=== PATIENT | male | born 1970 | race Caucasian/White ===

== ENCOUNTER 2020-12-22 11:10 | Outpatient (REF) | payer OTHER, SELFPAY ==
--- NOTE | ~2020-12-22 | MR_ITS ---
EXAMINATION: MR LUMBAR SPINE WITHOUT CONTRAST CLINICAL INFORMATION: Worsening posterior right thigh pain x2 months. Increasing. COMPARISON: Lumbar spine radiographs 04/19/2019. TECHNIQUE: MRI of the lumbar spine was obtained using routine sequences without contrast. FINDINGS: There is nonspecific straightening of the lumbar lordosis. Alignment is otherwise normal. Vertebral heights are preserved. There are mixed degenerative endplate changes at L2-L3 and L3-L4. There is slight loss of intervertebral disc height at multiple levels related to disc degeneration. The tip of the conus medullaris is located at L1. No mass effect on the conus. Visualized distal cord signal intensity is normal. At L1-L2 there is a slightly bulging disc. No canal stenosis. No mass effect the traversing or foraminal nerve roots. At L2-L3 there is a diffusely bulging disc. Mild canal stenosis. No mass effect on the traversing or foraminal nerve roots. At L3-L4 there is a diffusely bulging disc. Mild canal stenosis. No mass effect on the traversing or foraminal nerve roots. At L4-L5 there is a slightly bulging disc. No canal stenosis. No mass effect on the traversing or foraminal nerve roots. At L5-S1 the annular contour is normal. No canal or neuroforaminal compromise. Limited visualization of the retroperitoneal anatomy reveals no abnormal finding. Psoas and paraspinal muscle groups are symmetric. MR/MR lumbar spine wo con IMPRESSION: There is multilevel degenerative spondylosis of lumbar spine. Bulging discs cause mild canal stenosis at L2-L3 and L3-L4. Otherwise unremarkable examination. No canal stenosis. No mass effect on the traversing or foraminal nerve roots.
== END 2020-12-22 11:11 | disposition home or self-care (01) ==
LOC: HO.MRI 11:10
PROVIDERS: PCP Internal Medicine; Visit Provider Internal Medicine
DX: M54.5 Low back pain (principal)
CPT/HCPCS: 72148

== ENCOUNTER 2021-08-11 12:38 | Emergency (ER) | payer OTHER, SELFPAY ==
[2021-08-11 13:27] VITALS: BP 150/90; PULSE 67; RESP 19; TEMP 36.6; O2SAT 96; BMI 36.6
--- NOTE | 2021-08-11 14:39 | ED_ITS ---
HPI - Back Pain/Injury General Chief Complaint: Back Pain/Injury Stated Complaint: back & leg pain Time Seen by Provider: 08/11/21 14:09 Source: patient Mode of arrival: ambulatory Limitations: no limitations History of Present Illness MD elicited complaint: back pain Pertinent past history: prior back pain (Had a lumbar MRI without contrast on 12/23/2020 which revealed multilevel degenerative spondylosis of lumbar spine bulging disc causing mild canal stenosis at L2-L3 an L3-L4 otherwise no other acute processes) Onset (ago): week(s) (One week worse today) Timing: constant and progressively worsening Severity: severe Pain scale (0-10): 10 Similar Symptoms Previously: Yes Quality: sharp, aching, tingling and throbbing Location: lumbar spine Radiation: left upper leg, right upper leg, left leg below the knee and right leg below the knee Exacerbating factors: movement, sitting upright and walking Relieving factors: immobilization Context: unknown Associated symptoms: denies other symptoms Treatments prior to arrival: other ([id number] medication and prescribed gabapentin no symptomatic relief) Work related injury: No Related Data Previous Rx's Medication Instructions Recorded acetaminophen 500 mg tablet 1,000 mg PO QID PRN #14 tab 08/11/21 (Tylenol Extra Strength) diazepam 10 mg tablet (Valium) 10 mg PO Q8H PRN #14 tab 08/11/21 ibuprofen 800 mg tablet 800 mg PO Q8H PRN #14 tab 08/11/21 lidocaine HCl 4 % topical cream 1 appl TOPICAL BID PRN #120 g 08/11/21 (Aspercreme (lidocaine HCl)) oxycodone 5 mg tablet 5 mg PO Q6H PRN #14 tab 08/11/21 prednisone 20 mg tablet 40 mg PO DAILY 5 Days #10 tab 08/11/21 Allergies Allergy/AdvReac Type Severity Reaction Status Date / Time No Known Allergies Allergy Unverified 07/24/20 17:16 [No Known Allergies*] Review of Systems Review of Systems: Constitutional : No trauma, No Weight loss, No Fever, No Ch ills, ENT/Mouth : No Hearing loss, No Ear Pain, No Nasal Congestion, No Sinus Pain, No Hoarseness, No sore throat, No Rhinorrhea, No Swallowing Difficulty Cardiovascular : No Chest Pain, No SOB Respiratory : No Cough, No Dyspnea Gastrointestinal : No Nausea, No Vomiting, No Diarrhea, No abdominal Pain, No Hematochezia, No Melena Genitourinary : No Dysuria, No Urinary Frequency, No Hematuria, No Urinary or Bowel Incontinence/retention Musculoskeletal : + Back pain, + neck pain, No joint stiffness, No joint swelling Skin : No Skin Lesions, No rash or signs of infection Neuro : No Weakness, + radiation, + tingling, No Numbness, No Paresthesias, No headache, no loss of bowel or bladder incontinence, no saddle anesthesia, Focal weakness, No radiation Denies history of IV drug usage. Yes all other systems are reviewed and are negative [facility] Past Medical History Attestation statement: The following information was validated with the patient. Medical History GERD (gastroesophageal reflux disease) HTN (hypertension) Social History Social History Advance Directives: No Physical Exam Vital Signs: Vital Signs: Last Vital Signs Temp 98 F 08/11/21 13:27 Pulse 67 08/11/21 13:27 Resp 19 08/11/21 13:27 BP 150/90 H 08/11/21 13:27 Pulse Ox 96 08/11/21 13:27 Body Mass Index 36.6 vital signs have been reviewed as normal and appeared to be correct. Blood pressure normal. Heart rate normal. Respiration rate normal. Temperature normal. Oxygen saturation normal. Appearance: Alert. Oriented X3. No acute distress. Head: Normal external exam. Normocephalic. Atraumatic. Eyes: PERRLA. EOMI. Conjunctiva and sclera normal. Eyelids normal. ENT: Pharynx normal. Uvula midline. Moist mucous membranes. No trismus noted. No drooling noted. No muffled voice noted. Neck: Normal inspection. Neck supple. FROM. No adenopathy. Thyroid Normal. No meningeal signs. No neck mass noted. Patient mild tenderness supine lateral cervical paraspinous. No midcervical tenderness step-offs or deformities. Patient neuro intact bilat on this in all 4 extremities. Reflex intact and distally on all extremities. No rashes/lesion/induration/fluctuance or signs of infection noted. CVS: Normal heart rate and rhythm. Heart sound normal. No murmurs noted. Pulses normal throughout. Respiratory: No respiratory distress. Painless inspiration. Breath sounds normal. No wheezes/rales/rhonchi noted. Chest nontender. No accessory muscle usage noted or decreased air movement noted. Abdomen: Soft and nontender. Bowel sounds normal in all 4 quadrants. No distention noted. No organomegaly noted. No visible injury noted. Back: No CVA tenderness. Full range of motion noted. No obvious deformities, or edema. Mild para-spinal muscular tenderness from lumbar region to coccyx. Full ROM in back and lower extremities. 5/5 strength hip extension/flexion, abduction, adduction. Mild Lumbar pain with hip flexion against resistance. Straight leg raise test negative on right; Straight leg raise test negative on left; Reflexes normal ankle and knee bilaterally; EHL motor strength normal bilaterally. No rashes/lesion/induration/fluctuance or signs infection noted. Skin: Skin warm and dry. Normal skin color. Normal skin turgor. No rashes/lesions/lacerations noted. Extremities: Extremities exhibit normal range of motion. Extremities nontender. Neuro: Oriented X 3. No motor deficit. No sensory deficit. Reflexes normal. Patient has a normal steady gait. Course Course Course Narrative: Pt c likely muscular pain, but could be herniated disc. Neuro exam shows no deficits. Not c/w AAA/epidural abscess/dissection.No high risk Hx (Incont, fever, immunosupp, recent surgery/LP, coag, signif trauma, wt loss, puls mass, hx/o Ca, TB, or IVDU) to warrant MRI/CT today. Not c/w Pyelo/UTI/kidney stone/spinal fx. Not cauda equina syndrome. Imaging not currently indicated. DC c meds and f/u. MDM - Back Pain/Injury Medical Records Attestation: I reviewed the patient's medical records. Imaging Data MRI of lumbar spine without contrast on 12/23/2020: Attestation: I personally reviewed and interpreted this imaging study as follows: Radiologist's impression: FINDINGS: There is nonspecific straightening of the lumbar lordosis. Alignment is otherwise normal. Vertebral heights are preserved. There are mixed degenerative endplate changes at L2-L3 and L3-L4. There is slight loss of intervertebral disc height at multiple levels related to disc degeneration. The tip of the conus medullaris is located at L1. No mass effect on the conus. Visualized distal cord signal intensity is normal. At L1-L2 there is a slightly bulging disc. No canal stenosis. No mass effect the traversing or foraminal nerve roots. At L2-L3 there is a diffusely bulging disc. Mild canal stenosis. No mass effect on the traversing or foraminal nerve roots. At L3-L4 there is a diffusely bulging disc. Mild canal stenosis. No mass effect on the traversing or foraminal nerve roots. At L4-L5 there is a slightly bulging disc. No canal stenosis. No mass effect on the traversing or foraminal nerve roots. At L5-S1 the annular contour is normal. No canal or neuroforaminal compromise. Limited visualization of the retroperitoneal anatomy reveals no abnormal finding. Psoas and paraspinal muscle groups are symmetric. MR/MR lumbar spine wo con IMPRESSION: There is multilevel degenerative spondylosis of lumbar spine. Bulging discs cause mild canal stenosis at L2-L3 and L3-L4. Otherwise unremarkable examination. No canal stenosis. No mass effect on the traversing or foraminal nerve roots. Discharge Plan Discharge Clinical Impression: Lumbar radiculopathy, Spondylosis of lumbar spine, Muscle spasms of neck, Back muscle spasm Patient Disposition: Home, Self-Care Instructions: Lumbar Radiculopathy (ED), Muscle Spasm (ED), Lower Back Exercises (ED) Prescriptions: New ibuprofen 800 mg tablet 800 mg PO Q8H PRN (Reason: pain) Qty: 14 RF: 0 prednisone 20 mg tablet 40 mg PO DAILY 5 Days Qty: 10 RF: 0 acetaminophen [Tylenol Extra Strength] 500 mg tablet 1,000 mg PO QID PRN (Reason: fever or pain) Qty: 14 RF: 0 diazepam [Valium] 10 mg tablet 10 mg PO Q8H PRN (Reason: muscle spasm) Qty: 14 RF: 0 lidocaine HCl [Aspercreme (lidocaine HCl)] 4 % cream 1 appl topical BID PRN (Reason: pain) Qty: 120 RF: 0 oxycodone 5 mg tablet 5 mg PO Q6H PRN (Reason: pain) Qty: 14 RF: 0 Referrals: Kyle Kiser MD [Primary Care Provider] - 2 days Print Language: [place]
== END 2021-08-11 15:00 | disposition home or self-care (01) ==
PROVIDERS: Emergency Provider Emergency Medicine; PCP Internal Medicine
DX: M47.816 Spondylosis without myelopathy or radiculopathy, lumbar region (principal); M62.830 Muscle spasm of back; Z79.899 Other long term (current) drug therapy
CPT/HCPCS: 99283

== ENCOUNTER 2021-10-23 10:10 | Outpatient (REF) | payer OTHER, SELFPAY ==
--- NOTE | ~2021-10-23 | XR_ITS ---
EXAMINATION: XR KNEE, RIGHT CLINICAL INFORMATION: Right knee pain. Chronic anterior right knee pain. COMPARISON: None TECHNIQUE: AP weightbearing, tunnel weightbearing, lateral weightbearing, and sunrise views of the right knee are obtained. FINDINGS: There is no fracture, malalignment, or joint effusion. There are tiny marginal osteophytes involving all compartments. There is no apparent joint space narrowing. There is hypertrophy of the tibial tubercle and an adjacent ossification, consistent with old [place]-Schlatter's disease. XR/XR knee RT 4V IMPRESSION: Old [place]-Schlatter's disease. Minor tricompartmental osteoarthritis with no significant joint space narrowing.
== END 2021-10-23 10:11 | disposition home or self-care (01) ==
LOC: HO.XRAY 10:10
PROVIDERS: PCP Internal Medicine; Visit Provider Internal Medicine
DX: M25.561 Pain in right knee (principal)
CPT/HCPCS: 73564

== ENCOUNTER 2021-12-25 13:00 | Outpatient (RCR) | payer OTHER, SELFPAY | END 2022-02-04 09:49 | disposition home or self-care (01) | LOC: HO.PTCHIC 13:00 | PROVIDERS: PCP Internal Medicine; Visit Provider Internal Medicine | DX: M25.561 Pain in right knee (principal) | CPT/HCPCS: 97110; 97140; 97161 ==

== ENCOUNTER 2024-09-10 12:42 | Outpatient (REF) | payer OTHER, SELFPAY ==
[2024-09-10 16:24] LABS: Alanine Aminotransferase 6 U/L (0-40); Albumin Level 3.5 g/dL (3.5-5.0); Alkaline Phosphatase 84 U/L (39-117); Anion Gap 16 (12-20); Aspartate Amino Transferase 29 U/L (5-37); Bilirubin Total 0.4 mg/dL (0.0-1.0); Blood Urea Nitrogen 17 mg/dL (9-16); Calcium 9.5 mg/dL (8.4-10.2); Carbon Dioxide 25 mmol/L (22-29); Chloride 102 mmol/L (96-108); Estimated Glomerular Filt Rate 44; Glucose Random 97 mg/dL (60-115); Potassium 4.1 mmol/L (3.3-5.1); Sodium 139 mmol/L (135-145); Total Protein 8.4 g/dL (6.5-8.0)
== END 2024-09-10 12:43 | disposition home or self-care (01) ==
LOC: HO.CHCLDS 12:42
PROVIDERS: Visit Provider Internal Medicine
DX: C20 Malignant neoplasm of rectum (principal); C78.00 Secondary malignant neoplasm of unspecified lung; R63.4 Abnormal weight loss
CPT/HCPCS: 36415; 80053